=== PATIENT | female | born 1960 | race Two or more races ===

== ENCOUNTER 2020-08-15 12:10 | Inpatient (IN) | payer MEDICAID ==
[~2020-08-15] VITALS: Ht 165.1 cm; Wt 68.9 kg
[~2020-08-15 12:10] MED LIST: ATOR40TA78; ATOR40TA78 PO; GEMF600T8; GEMF600T8 PO; GLIM4TAB8 PO; INSU100C5; INSU100I13 SQ; LISI40TA; LISI40TA PO; METF-163; METF500T17 PO
--- NOTE | 2020-08-15 13:13 | NUR ---
DR CARROLL AT BEDSIDE, PT ASSESSMENT AND POC DISCUSSED. MYLES REC'D. PT DAUGHTER PROVIDED INTERPRETATION PER PTS REQUEST. CALL LIGHT W/I REACH
--- NOTE | 2020-08-15 13:14 | NUR ---
PT TESTED FOR COVID ON SATURDAY AT [facility]. NO RESULTS YET. PTS SON TESTED +COVID 2 WEEKS AGO
[2020-08-15] MEDS ORDERED: ONDANSETRON ODT 4 MG PO ONE (13:30)
[2020-08-15 13:43] LABS: BASOPHILS % (AUTO) 0 % (0-1); EOSINOPHILS % (AUTO) 0 % (1-7); LYMPHOCYTES % (AUTO) 12 % (22-44); MEAN CORPUSCULAR HEMOGLOBIN 28.9 pg (27.0-34.8); MEAN CORPUSCULAR HGB CONC 33.4 g/dL (32.4-35.8); MEAN PLATELET VOLUME 10.2 fL (7.4-10.4); MONOCYTES % (AUTO) 4 % (2-9); NEUTROPHILS % (AUTO) 83 % (42-75); PLATELET COUNT 216 x10^3/uL (130-400); RED BLOOD COUNT 4.46 x10^6/uL (3.82-5.3)
[2020-08-15 13:46] LABS: MD NO
[2020-08-15] MEDS ORDERED: ONDANSETRON ODT 4 MG ONE (13:53)
[2020-08-15 13:54] LABS: ALANINE AMINOTRANSFERASE 34 U/L (12-78); ALBUMIN 3.1 g/dL (3.4-5.0); ANION GAP 11 mmol/L (5-15); CHLORIDE 100 mmol/L (98-107); CREATININE 1.28 mg/dL (0.55-1.02)
[2020-08-15 13:58] LABS: ALKALINE PHOSPHATASE 134 U/L (45-117); BILIRUBIN,TOTAL 0.3 mg/dL (0.2-1.0); TROPONIN I < 0.015 ng/mL (0.000-0.045)
[2020-08-15] MEDS ORDERED: AZITHROMYCIN 500 MG in SODIUM CHLORIDE 0.9% 250 ML IV ONE (14:30)
[2020-08-15] MEDS ORDERED: CEFTRIAXONE PMX 1GM/50ML 50 ML IVPB ONE (14:30)
[2020-08-15 15:08] LABS: C-REACTIVE PROTEIN, QUANT 8.8 mg/dL (0.02-0.49)
[2020-08-15 15:26] LABS: D-DIMER (DIC) 0.45 ug/mlFEU (0.00-0.52); PROTIME 9.6 Seconds (9.6-11.5)
[2020-08-15] MEDS ORDERED: CEFTRIAXONE PMX 1GM/50ML 50 ML ONE (15:27)
--- NOTE | 2020-08-15 15:34 | NUR ---
BREAK RN: IV ANTIBX STARTED, BLOOD CULTURES DRAWN PRIOR. ORDERED MEAL, DAUGHTER AT BS. PT VERBALIZED NO OTHER NEEDS AT THIS TIME
--- NOTE | 2020-08-15 17:25 | NUR ---
PT ATE LESS THAN 25% OF MEAL. H PROVIDER AT BEDSIDE.
--- NOTE | 2020-08-15 18:46 | NUR ---
PT OOB TO CHAIR, TRANSFERED ON TO HOSPITAL BED. PT TOLLERATED WELL. CALL LIGHT W/I REACH, VSS, NAD NOTED.
[2020-08-15] MEDS ORDERED: ONDANSETRON ODT 4 MG PO PRN (19:00)
[2020-08-15] MEDS ORDERED: LABETALOL 5MG/ML, 20ML IVPush PRN (19:00)
[2020-08-15] MEDS ORDERED: GUAIFENESIN/COD200MG-20MG/10ML LIQUID PO PRN (19:00)
[2020-08-15] MEDS ORDERED: LORazepam 1MG TABLET PO PRN (19:00)
[2020-08-15] MEDS ORDERED: ACETAMINOPHEN 325 MG TABLET PO PRN (19:00)
[2020-08-15] MEDS ORDERED: ONDANSETRON 2MG/ML, 2ML IVPush PRN (19:00)
[2020-08-15] MEDS ORDERED: DOCUSATE 100 MG CAPSULE PO PRN (19:00)
[2020-08-15] MEDS ORDERED: morphine SULFATE 10 MG/ML, 1ML IVPush PRN (19:00)
[2020-08-15] MEDS ORDERED: ENOXAPARIN 40 MG/0.4 ML ONE (20:01)
[2020-08-15] MEDS: ENOXAPARIN 40 MG/0.4 ML SQ SCH (20:22)
[2020-08-15] MEDS: LACTATED RINGERS 1,000 ML IV SCH (20:53)
[2020-08-15] MEDS: INSULIN LISPRO 100 UNITS/ML, PEN SQ-INSULIN SCH (20:56)
[2020-08-15] MEDS ORDERED: INSULIN GLARGINE 100 UNITS/ML, PEN SQ-INSULIN SCH (21:00)
[2020-08-15 22:50] LABS: MICROSCOPIC INDICATED
--- NOTE | 2020-08-15 22:58 | NUR ---
Discussed with Dr. Fong for COVID swab. Pt was swabbed by [facility] Saturday. Hospitals will call for results. No need to swab pt again in house.
[2020-08-15] MEDS ORDERED: OMNIPAQUE 350 MG/ML, 100ML BOTTLE ONE (23:27)
--- NOTE | 2020-08-16 01:35 | NUR ---
TASK RN: REPORT OF PT FROM ANTONIO ZAMORA AND ASSUMING TEMPORARY CARE OF PT AT THIS TIME. PT RESTING IN GURNEY; NADN. CALL LIGHT IS WITHIN REACH OF THE PATIENT.
--- NOTE | 2020-08-16 03:20 | NUR ---
Report called to Rama ALVAREZ.
[2020-08-16 04:17] VITALS: BP 164/91
[2020-08-16] MEDS: HYDROcodone/APAP 5/325 TABLET PO PRN ×2 (05:27→21:19)
[2020-08-16 06:11] LABS: BASOPHILS % (AUTO) 0 % (0-1); EOSINOPHILS % (AUTO) 0 % (1-7); LYMPHOCYTES % (AUTO) 17 % (22-44); MEAN CORPUSCULAR HEMOGLOBIN 28.4 pg (27.0-34.8); MEAN CORPUSCULAR HGB CONC 33.5 g/dL (32.4-35.8); MEAN PLATELET VOLUME 9.9 fL (7.4-10.4); MONOCYTES % (AUTO) 5 % (2-9); NEUTROPHILS % (AUTO) 78 % (42-75); PLATELET COUNT 236 x10^3/uL (130-400); RED BLOOD COUNT 4.34 x10^6/uL (3.82-5.3); RED CELL DISTRIBUTION WIDTH 12.9 % (9.6-15.2)
[2020-08-16 06:15] LABS: MD NO
[2020-08-16 06:18] LABS: ALANINE AMINOTRANSFERASE 33 U/L (12-78); ALBUMIN 2.9 g/dL (3.4-5.0); ANION GAP 9 mmol/L (5-15); CALCIUM 9.9 mg/dL (8.5-10.1); CHLORIDE 99 mmol/L (98-107)
[2020-08-16 06:24] LABS: D-DIMER 0.55 ug/mlFEU (0.00-0.52)
[2020-08-16 06:25] LABS: ALKALINE PHOSPHATASE 124 U/L (45-117); BILIRUBIN,TOTAL 0.4 mg/dL (0.2-1.0); C-REACTIVE PROTEIN, QUANT 8.21 mg/dL (0.02-0.49); CREATININE 0.84 mg/dL (0.55-1.02); TOTAL PROTEIN 7.8 g/dL (6.4-8.2)
[2020-08-16 06:35] VITALS: BP 116/74
[2020-08-16] MEDS: LACTATED RINGERS 1,000 ML IV SCH ×2 (08:10→16:39)
[2020-08-16] MEDS: PANTOPRAZOLE 40MG TABLET PO SCH (08:10)
[2020-08-16] MEDS: INSULIN LISPRO 100 UNITS/ML, PEN SQ-INSULIN SCH ×4 (08:19→20:56)
[2020-08-16 12:40] VITALS: BP 125/75
[2020-08-16] MEDS: INSULIN GLARGINE 100 UNITS/ML, PEN SQ-INSULIN SCH ×2 (12:52→20:57)
[2020-08-16 19:12] VITALS: BP 140/76
[2020-08-16] MEDS: ENOXAPARIN 40 MG/0.4 ML SQ SCH (20:55)
[2020-08-17 00:45] VITALS: BP 127/71
[2020-08-17] MEDS: LACTATED RINGERS 1,000 ML IV SCH ×2 (04:57→13:36)
[2020-08-17 06:42] VITALS: BP 165/79
[2020-08-17] MEDS: PANTOPRAZOLE 40MG TABLET PO SCH (08:53)
[2020-08-17] MEDS: INSULIN LISPRO 100 UNITS/ML, PEN SQ-INSULIN SCH ×4 (08:53→20:41)
[2020-08-17] MEDS: INSULIN GLARGINE 100 UNITS/ML, PEN SQ-INSULIN SCH ×2 (08:54→20:42)
[2020-08-17] MEDS: HYDROcodone/APAP 5/325 TABLET PO PRN (11:10)
[2020-08-17 14:33] VITALS: BP 127/68
[2020-08-17] MEDS ORDERED: DEXAMETHASONE 4 MG/ML, 1ML IVPush SCH (18:00)
[2020-08-17] MEDS: AZITHROMYCIN 500 MG TABLET PO SCH (18:42)
[2020-08-17] MEDS: CEFTRIAXONE PMX 1GM/50ML 50 ML IV SCH (18:43)
[2020-08-17 20:07] VITALS: BP 140/82
[2020-08-17] MEDS: MELATONIN 5 MG TABLET PO SCH (20:38)
[2020-08-17] MEDS: THIAMINE 100MG TABLET PO SCH (20:38)
[2020-08-17] MEDS: ENOXAPARIN 40 MG/0.4 ML SQ SCH (20:39)
[2020-08-17] MEDS ORDERED: DIPHENHYDRAMINE 25 MG CAPSULE ONE (20:51)
[2020-08-17] MEDS ORDERED: DIPHENHYDRAMINE 25 MG CAPSULE PO PRN (21:00)
[2020-08-18 01:04] VITALS: BP 109/67
[2020-08-18 06:33] LABS: BASOPHILS % (AUTO) 0 % (0-1); EOSINOPHILS % (AUTO) 0 % (1-7); LYMPHOCYTES % (AUTO) 13 % (22-44); MEAN CORPUSCULAR HEMOGLOBIN 28.5 pg (27.0-34.8); MEAN CORPUSCULAR HGB CONC 33.6 g/dL (32.4-35.8); MEAN PLATELET VOLUME 9.9 fL (7.4-10.4); MONOCYTES % (AUTO) 3 % (2-9); NEUTROPHILS % (AUTO) 84 % (42-75); PLATELET COUNT 302 x10^3/uL (130-400); RED CELL DISTRIBUTION WIDTH 12.4 % (9.6-15.2)
[2020-08-18 06:37] LABS: MD NO
[2020-08-18 06:40] LABS: ANION GAP 8 mmol/L (5-15); CALCIUM 9.9 mg/dL (8.5-10.1); CHLORIDE 103 mmol/L (98-107); CREATININE 0.67 mg/dL (0.55-1.02)
[2020-08-18 06:48] LABS: D-DIMER 4.67 ug/mlFEU (0.00-0.52)
[2020-08-18] MEDS: PANTOPRAZOLE 40MG TABLET PO SCH (07:25)
[2020-08-18] MEDS: INSULIN GLARGINE 100 UNITS/ML, PEN SQ-INSULIN SCH ×2 (07:25→21:00)
[2020-08-18] MEDS: THIAMINE 100MG TABLET PO SCH ×2 (07:25→21:01)
[2020-08-18] MEDS: ZINC SULFATE 220 MG CAPSULE PO SCH (07:25)
[2020-08-18] MEDS: CHOLECALCIFEROL 5,000u TAB PO SCH (07:25)
[2020-08-18] MEDS: AZITHROMYCIN 500 MG TABLET PO SCH (07:25)
[2020-08-18] MEDS: INSULIN LISPRO 100 UNITS/ML, PEN SQ-INSULIN SCH ×4 (07:26→21:01)
[2020-08-18 07:28] VITALS: BP 136/77
[2020-08-18 13:32] VITALS: BP 133/71
[2020-08-18] MEDS: metFORMIN 500 MG TABLET PO SCH (16:30)
[2020-08-18] MEDS: CEFTRIAXONE PMX 1GM/50ML 50 ML IV SCH (18:33)
[2020-08-18 20:23] VITALS: BP 138/74
[2020-08-18] MEDS: ATORVASTATIN 40 MG TABLET PO SCH (21:01)
[2020-08-18] MEDS: ENOXAPARIN 40 MG/0.4 ML SQ SCH (21:01)
[2020-08-18] MEDS: MELATONIN 5 MG TABLET PO SCH (21:01)
[2020-08-19 00:37] VITALS: BP 125/71
[2020-08-19 07:55] VITALS: BP 119/76
[2020-08-19] MEDS: INSULIN LISPRO 100 UNITS/ML, PEN SQ-INSULIN SCH ×4 (07:56→21:48)
[2020-08-19] MEDS: INSULIN GLARGINE 100 UNITS/ML, PEN SQ-INSULIN SCH ×2 (07:57→21:49)
[2020-08-19] MEDS: GLIMEPIRIDE 4 MG TABLET PO SCH (07:57)
[2020-08-19] MEDS: ZINC SULFATE 220 MG CAPSULE PO SCH (07:58)
[2020-08-19] MEDS: AZITHROMYCIN 500 MG TABLET PO SCH (07:58)
[2020-08-19] MEDS: PANTOPRAZOLE 40MG TABLET PO SCH (07:58)
[2020-08-19] MEDS: metFORMIN 500 MG TABLET PO SCH ×2 (07:58→15:47)
[2020-08-19] MEDS: LISINOPRIL 40 MG TABLET PO SCH (07:58)
[2020-08-19] MEDS: THIAMINE 100MG TABLET PO SCH ×2 (07:58→21:48)
[2020-08-19] MEDS: CHOLECALCIFEROL 5,000u TAB PO SCH (07:58)
[2020-08-19] MEDS: methylPREDNISolone SOD SUCC 40 MG/ML IV SCH ×2 (08:07→16:42)
[2020-08-19] MEDS: FAMOTIDINE 20 MG TABLET PO SCH ×2 (08:08→21:48)
[2020-08-19] MEDS: ASCORBIC ACID 500 MG TABLET PO SCH ×3 (08:08→21:48)
[2020-08-19] MEDS: ENOXAPARIN 40 MG/0.4 ML SQ SCH ×2 (08:09→21:48)
[2020-08-19 14:24] VITALS: BP 139/72
[2020-08-19] MEDS ORDERED: INSULIN LISPRO 100 UNIT/ML, 3ML VIAL SQ-INSULIN ONE (17:00)
[2020-08-19] MEDS: CEFTRIAXONE PMX 1GM/50ML 50 ML IV SCH (17:46)
[2020-08-19 19:21] VITALS: BP 148/67
[2020-08-19] MEDS: MELATONIN 5 MG TABLET PO SCH (21:48)
[2020-08-19] MEDS: ATORVASTATIN 40 MG TABLET PO SCH (21:48)
[2020-08-20 00:41] VITALS: BP 115/70
[2020-08-20 07:55] VITALS: BP 116/71
[2020-08-20] MEDS: INSULIN LISPRO 100 UNITS/ML, PEN SQ-INSULIN SCH ×4 (08:13→22:10)
[2020-08-20] MEDS: metFORMIN 500 MG TABLET PO SCH ×2 (08:14→16:31)
[2020-08-20] MEDS: CHOLECALCIFEROL 5,000u TAB PO SCH (08:14)
[2020-08-20] MEDS: ZINC SULFATE 220 MG CAPSULE PO SCH (08:14)
[2020-08-20] MEDS: AZITHROMYCIN 500 MG TABLET PO SCH (08:14)
[2020-08-20] MEDS: ASCORBIC ACID 500 MG TABLET PO SCH ×3 (08:14→22:04)
[2020-08-20] MEDS: THIAMINE 100MG TABLET PO SCH ×2 (08:14→22:04)
[2020-08-20] MEDS: LISINOPRIL 40 MG TABLET PO SCH (08:14)
[2020-08-20] MEDS: FAMOTIDINE 20 MG TABLET PO SCH ×2 (08:14→22:04)
[2020-08-20] MEDS: GLIMEPIRIDE 4 MG TABLET PO SCH (08:14)
[2020-08-20] MEDS: ENOXAPARIN 40 MG/0.4 ML SQ SCH ×2 (08:15→22:05)
[2020-08-20] MEDS: INSULIN GLARGINE 100 UNITS/ML, PEN SQ-INSULIN SCH ×2 (08:18→22:09)
[2020-08-20] MEDS: CIPROFLOXACIN 500 MG TABLET PO SCH ×2 (08:21→22:04)
[2020-08-20] MEDS ORDERED: methylPREDNISolone SOD SUCC 40 MG/ML IV SCH (09:00)
[2020-08-20 12:08] VITALS: BP 123/74
[2020-08-20] MEDS: CEFTRIAXONE PMX 1GM/50ML 50 ML IV SCH (18:08)
[2020-08-20 18:56] VITALS: BP 138/74
[2020-08-20] MEDS: ATORVASTATIN 40 MG TABLET PO SCH (22:04)
[2020-08-20] MEDS: MELATONIN 5 MG TABLET PO SCH (22:04)
[2020-08-21 00:48] VITALS: BP 132/73
[2020-08-21 06:49] VITALS: BP 98/62
[2020-08-21] MEDS: INSULIN LISPRO 100 UNITS/ML, PEN SQ-INSULIN SCH (07:00)
[2020-08-21] MEDS: ENOXAPARIN 40 MG/0.4 ML SQ SCH (09:00)
[2020-08-21] MEDS ORDERED: CHOL500045 PO (09:33)
[2020-08-21] MEDS ORDERED: CIPR500T87 PO (09:33)
[2020-08-21] MEDS ORDERED: CEFD300C37 PO (09:33)
[2020-08-21] MEDS ORDERED: ZINC220C7 PO (09:33)
[2020-08-21] MEDS ORDERED: ASCO1500 PO (09:33)
[2020-08-21] MEDS: CHOLECALCIFEROL 5,000u TAB PO SCH (09:34)
[2020-08-21] MEDS: LISINOPRIL 40 MG TABLET PO SCH (09:34)
[2020-08-21] MEDS: GLIMEPIRIDE 4 MG TABLET PO SCH (09:34)
[2020-08-21] MEDS: ASCORBIC ACID 500 MG TABLET PO SCH (09:34)
[2020-08-21] MEDS: CIPROFLOXACIN 500 MG TABLET PO SCH (09:35)
[2020-08-21] MEDS: FAMOTIDINE 20 MG TABLET PO SCH (09:35)
[2020-08-21] MEDS: THIAMINE 100MG TABLET PO SCH (09:35)
[2020-08-21] MEDS: ZINC SULFATE 220 MG CAPSULE PO SCH (09:36)
[2020-08-21] MEDS: metFORMIN 500 MG TABLET PO SCH (09:36)
[2020-08-21] MEDS: INSULIN GLARGINE 100 UNITS/ML, PEN SQ-INSULIN SCH (09:49)
[2020-08-21] MEDS ORDERED: AZITHROMYCIN 500 MG TABLET PO SCH (10:00)
== END 2020-08-21 11:05 | disposition home or self-care (01) | DRG 871 ==
LOC: ED 13:08 → EDIP 15:13 → 4EST 08-16 04:00
PROVIDERS: ADMIT Internal Medicine; ATTEND Hospitalist
DX: A41.89 Other specified sepsis (principal); J12.89 Other viral pneumonia; J96.01 Acute respiratory failure with hypoxia; N17.0 Acute kidney failure with tubular necrosis; U07.1 COVID-19; E87.2 Acidosis; Z16.12 Extended spectrum beta lactamase (ESBL) resistance; D72.810 Lymphocytopenia; E11.65 Type 2 diabetes mellitus with hyperglycemia; E78.5 Hyperlipidemia, unspecified; E83.42 Hypomagnesemia; I10 Essential (primary) hypertension; Z79.4 Long term (current) use of insulin; Z79.899 Other long term (current) drug therapy; R74.02 Elevation of levels of lactic acid dehydrogenase [LDH]; R79.82 Elevated C-reactive protein (CRP); B96.20 Unspecified Escherichia coli [E. coli] as the cause of diseases classified elsewhere
CPT/HCPCS: 36415; 36600; 71045; 71275; 80048; 80053; 81001; 82728; 82803; 82947; 82962; 83036; 83605; 83615; 83735; 84100; 84145; 84484; 85025; 85049; 85379; 85384; 85610; 85730; 86140; 87040; 87077; 87086; 87184; 87186; 87635; 93005; 96365; 96366; 96368; 99285; G0378; J0456; J0696; J1100; J1650; Q0162; Q9967; J1815; J2920; J7050; J7120; Q0163

== ENCOUNTER 2021-01-07 20:20 | Emergency (ER) | payer MEDICAID ==
[~2021-01-07] VITALS: Ht 160 cm; Wt 84.0 kg
[~2021-01-07 20:20] MED LIST changes: +ASCO1500 PO; +CEFD300C37 PO; +CHOL500045 PO; +CIPR500T87 PO; +GEMF-31; +GEMF-31 PO; -GEMF600T8; -GEMF600T8 PO; -LISI40TA; -LISI40TA PO; +LISI40TA9; +LISI40TA9 PO; +ZINC220C7 PO
--- NOTE | 2021-01-07 20:35 | NUR ---
PT FAMILY STATED THAT SHE GAVE PT 25MG OF BENADRYL PO PRIOR TO ARRIVAL.
[2021-01-07] MEDS ORDERED: FAMOTIDINE 20 MG TABLET PO ONE (21:00)
[2021-01-07] MEDS ORDERED: FAMOTIDINE 20 MG TABLET ONE (21:01)
[2021-01-07 22:56] VITALS: BP 100/49
== END 2021-01-07 22:58 | disposition home or self-care (01) ==
LOC: ED 22:28
DX: T78.2XXA Anaphylactic shock, unspecified, initial encounter (principal); R22.0 Localized swelling, mass and lump, head; R11.2 Nausea with vomiting, unspecified; E11.9 Type 2 diabetes mellitus without complications; I10 Essential (primary) hypertension; Z90.710 Acquired absence of both cervix and uterus; Z79.899 Other long term (current) drug therapy
CPT/HCPCS: 99283; J7512